=== PATIENT | male | born 1950 | race Caucasian/White ===

== ENCOUNTER 2017-11-20 07:30 | Inpatient (IN) | payer BC, MEDICARE ==
--- NOTE | 2017-11-22 10:23 | HP ---
HISTORY AND PHYSICAL: DATE OF SERVICE: 11/27/17 PROVIDER: Laxmi Early MD * (DICTATED BY YONY HOPSON) HISTORY OF PRESENT ILLNESS: Alfredo is a patient with severe left knee osteoarthritis, saying the pain is about 5/10. He has failed intra-articular injections, physical therapy, nonsteroidal antiinflammatories and would like to undergo a left total knee arthroplasty scheduled on 11/27/17. PAST MEDICAL HISTORY: 1. Obstructive sleep apnea, utilizes CPAP. 2. Morbid obesity. 3. Sleep disorder. 4. Hypoxemia. 5. Lymphedema. 6. Primary osteoarthritis. 7. Benign essential hypertension. 8. Type 2 diabetes mellitus. 9. Coronary arthrosclerosis. PAST SURGICAL HISTORY: In 2006 and 2016, stent placement; 1957 tonsils removed ; and then a small cyst removal 30 years ago. The patient had no known anesthesia problems during any of these. MEDICATIONS: 1. Lisinopril 5 mg 1 tablet daily. 2. Metformin extended release 500 mg 4 tablets once daily. 3. Aspirin 81 mg 1 by mouth daily. 4. Glimepiride 4 mg 1 tablet twice daily. 5. Victoza 18 mg/3 mL 1 injection daily. 6. Lantus SoloSTAR 100 units/mL. 7. Acarbose 50 mg one p.o. t.i.d. 8. Clopidogrel 75 mg. 9. Atorvastatin 10 mg. ALLERGIES: SIMVASTATIN causes leg cramps. FAMILY HISTORY: Paternal side - heart disease, gallbladder removal. SOCIAL HISTORY: The patient denies smoking. Patient drinks about 4 beers per year. Denies any illicit drug use. REVIEW OF SYSTEMS: General: The patient denies any fevers, chills or night sweats. HEENT: The patient denies any headache, lightheadedness or syncopal episodes. Cardiothoracic: The patient denies any chest pain, heart palpitations, or edema. Pulmonary: The patient denies any shortness of breath or chronic cough. GI: The patient denies any nausea, vomiting, diarrhea or constipation. : Denies any nocturia, urinary frequency, or urgency. MSK: The patient admits to left knee pain, denies any intermittent or chronic back pain. Neuro: The patient denies any paresthesias or numbness. Integument: The patient denies any abrasions, lesions, rashes, lumps, or open sores. PHYSICAL EXAMINATION GENERAL: The patient is alert and oriented x3, with appropriate mood and affect , appropriately dressed and hygiene, in no acute distress. HEENT: Normocephalic atraumatic. Hearing and vision are grossly intact. PULMONARY: Lungs are clear to auscultation bilaterally. No wheezes, rales or rhonchi appreciated. CARDIOTHORACIC: Regular rate and rhythm. Normal S1, S2. No appreciable S3 or S4. No murmurs, rubs or gallops. MUSCULOSKELETAL: Left lower extremity: Inspection of the left knee reveals no erythema, ecchymosis. Skin is warm dry and intact. He has trace to mild effusion of the knee. Range of motion is 0 degrees of extension to 120 degrees of flexion with some pain at terminal flexion. He has a medial and lateral tenderness to palpation along the joint line. Negative anterior and posterior drawer, no pain or laxity with varus or valgus stress testing. He is neurovascularly intact and has a 2+ dorsalis pedis pulse. IMPRESSION: Left knee osteoarthritis, severe, end stage. PLAN/RECOMMENDATIONS: To the OR for a left total knee arthroplasty on . The risks, benefits and complications were discussed with the patient and he understood. He would like to proceed. The patient will follow up on the 14th day status post surgery for followup with suture removal. YONY HOPSON [id number]/[facility] #: [id number] ANA
[2017-11-26] MEDS ORDERED: Buffered Lidocaine 0.9% SYRIN* 5 ML/SYR SYRINGE INTRADERM ONE (14:56)
[2017-11-27] MEDS ORDERED: celeCOXIB CAP* 200 MG PO ONE (06:00)
[2017-11-27] MEDS ORDERED: Gabapentin CAP(*) 300 MG PO ONE (06:00)
[2017-11-27] MEDS ORDERED: Acetaminophen IV 1GM/100ML * 1,000 MG/100 ML VIAL IVPB ONE (06:00)
[2017-11-27] MEDS ORDERED: Famotidine TAB* 20 MG PO ONE (06:00)
[2017-11-27] MEDS ORDERED: Dexamethasone IV* 4 MG/ML 1 ML (4 MG) IV SLOW PU ONE (06:00)
[2017-11-27] MEDS ORDERED: Dexamethasone IV* 4 MG/ML 1 ML (4 MG) ONE (07:03)
[2017-11-27] MEDS ORDERED: Famotidine IV* 10 MG/ML 2 ML (20 mg) ONE (07:03)
[2017-11-27] MEDS ORDERED: Gabapentin CAP(*) 300 MG ONE (07:04)
[2017-11-27] MEDS ORDERED: Buffered Lidocaine 0.9% SYRIN* 5 ML/SYR SYRINGE ONE (07:04)
[2017-11-27] MEDS ORDERED: celeCOXIB CAP* 100 MG ONE (07:04)
[2017-11-27] MEDS ORDERED: ceFAZolin 2 GM PREMIX (*) 2 GM/50 ML BAG IVPB ONE (07:04)
[2017-11-27] MEDS ORDERED: Bupivacaine 0.5% PF 10 ML VIAL INJ ONE ×2 (07:24→07:36)
[2017-11-27] MEDS ORDERED: Acetaminophen IV 1GM/100ML * 100 ML ONE (07:25)
[2017-11-27] MEDS ORDERED: Propofol* 10 MG/ML 20 ML BTL IV PUSH ONE (07:36)
[2017-11-27] MEDS ORDERED: Phenylephrine INJ* 10 MG/ML 1 ML VIAL (10 MG) ONE (07:36)
[2017-11-27] MEDS ORDERED: Midazolam* 1 MG/ML 10 ML VIAL (10 MG) ONE (07:38)
[2017-11-27] MEDS ORDERED: fentaNYL* 50 MCG/ML 2 ML VIAL (100 MCG VIAL) ONE (07:38)
[2017-11-27] MEDS ORDERED: ROPIVACAINE 5 MG/ML 30 ML BTL (0.5%) ONE ×2 (07:44→07:55)
[2017-11-27] MEDS ORDERED: Ondansetron ODT TAB* 4 MG ONE (07:53)
[2017-11-27] MEDS ORDERED: HYDROmorphone INJ* 1 MG/ML CARPUJECT SYRINGE IV PRN (09:20)
[2017-11-27] MEDS ORDERED: DiMENhydriNATE IV* 50 MG/ML VIAL IV PUSH PRN (09:20)
[2017-11-27] MEDS ORDERED: Naloxone* 0.4 MG/ML 1 ML VIAL IV PRN (09:20)
[2017-11-27] MEDS ORDERED: oxyCODONE TAB* 5 MG TAB PO PRN (09:20)
[2017-11-27] MEDS ORDERED: fentaNYL* 50 MCG/ML 2 ML VIAL (100 MCG VIAL) IV PRN (09:20)
[2017-11-27] MEDS ORDERED: Ondansetron ODT TAB* 4 MG SL PRN (10:45)
[2017-11-27] MEDS ORDERED: Cyclobenzaprine TAB* 10 MG PO PRN (11:02)
[2017-11-27] MEDS ORDERED: Ondansetron INJ* 2 MG/ML VIAL IV PRN (11:02)
[2017-11-27] MEDS ORDERED: Magnesium Hydroxide LIQ* 30 ML UDC PO PRN (11:02)
[2017-11-27] MEDS ORDERED: Acetaminophen TAB* 325 MG PO PRN (11:02)
[2017-11-27] MEDS ORDERED: diPHENhydraMINE IV* 50 MG/ML 1 ml VIAL (BENADRYL) IV PRN (11:02)
[2017-11-27] MEDS ORDERED: Bisacodyl SUPP* 10 MG SUPP PR PRN (11:02)
[2017-11-27] MEDS ORDERED: oxyCODONE/Acetamin 5/325 MG* TAB PO PRN (11:02)
[2017-11-27] MEDS ORDERED: Morphine VIAL* 4 MG/ML VIAL (1 ml vial) IV PRN (11:02)
[2017-11-27] MEDS ORDERED: Dextrose 50% Syringe 50 ML* 25 GM/50 ML SYRINGE IV PUSH PRN (11:40)
[2017-11-27] MEDS ORDERED: Insulin LISPRO* 1 UNITS UNIT SUBCUT ONE (11:50)
[2017-11-27] MEDS: Insulin LISPRO* 1 UNITS UNIT SUBCUT SCH ×3 (11:51→21:19)
--- NOTE | 2017-11-27 12:28 | RAD ---
HISTORY: Status post left knee arthroplasty COMPARISONS: November 16, 2017 VIEWS: 2, Frontal and lateral views of the left knee FINDINGS: BONE DENSITY: Normal. BONES: The patient is status post left knee arthroplasty. There is no hardware failure or osteolysis. JOINTS: The patient is status post left knee arthroplasty. ALIGNMENT: There is no dislocation. SOFT TISSUES: Unremarkable. OTHER FINDINGS: There is postsurgical change to the soft tissue. IMPRESSION: STATUS POST LEFT KNEE ARTHROPLASTY
[2017-11-27] MEDS: oxyCODONE/Acetamin 5/325 MG* TAB PO PRN ×3 (14:18→23:27)
[2017-11-27] MEDS: Atorvastatin* 10 MG TAB PO SCH (16:46)
[2017-11-27] MEDS: ceFAZolin 1 GM in Dextrose (*) 1 GM/50 ML BAG IVPB SCH (16:46)
[2017-11-27] MEDS ORDERED: Warfarin TAB(*) 6 MG PO ONE (17:00)
[2017-11-27] MEDS: oxyCODONE TAB* 5 MG TAB PO PRN (17:28)
[2017-11-27] MEDS ORDERED: Insulin GLARGINE(*) 1 UNITS UNIT SUBCUT SCH (21:00)
[2017-11-27] MEDS: Magnesium Hydroxide LIQ* 30 ML UDC PO SCH (21:03)
[2017-11-27] MEDS: Docusate CAP* 100 MG PO SCH (21:17)
--- NOTE | 2017-11-27 23:10 | CONS ---
CONSULTATION REPORT: DATE OF CONSULT: 11/27/17 PROVIDER: Ileana Tanner NP ATTENDING PHYSICIAN: Dr. Diallo (report dictated by Ileana Tanner NP). REFERRING PHYSICIAN: Dr. Early. REASON FOR CONSULT: Co-medical management. HISTORY OF PRESENT ILLNESS: Mr. Alfredo Campos is a very pleasant 67-year-old male with severe left knee osteoarthritis, who underwent an elective left total knee replacement today with Dr. Early. He also has a past medical history of obstructive sleep apnea, on CPAP; morbid obesity; hypertension; insulin- dependent type 2 diabetes; and history of coronary artery disease, status post stent placement. The patient was seen and evaluated at the bedside on short stay surgical unit where he was found to be alert and oriented x3, sitting up in a chair, visiting with his . He reports his pain is well controlled. He denies any nausea. No chest pain, shortness of breath. He reports he has a good appetite. PAST MEDICAL HISTORY: 1. Obstructive sleep apnea, on CPAP. 2. Lymphedema. 3. Osteoarthritis. 4. Hypertension. 5. Morbid obesity. 6. Insulin-dependent type 2 diabetes. 7. Coronary artery disease, status post stent placement in 2006 and 2016. PAST SURGICAL HISTORY: 1. Coronary artery stent placement in 2006 and 2017. 2. Tonsillectomy. MEDICATIONS: Current medications reviewed and appreciated. Home medications: 1. Metformin 2000 mg p.o. q.p.m. 2. Lisinopril 5 mg p.o. q.a.m. 3. Victoza 1.8 mL injection q.a.m. 4. Lantus 28 units subcu q.p.m. 5. Glimepiride 4 mg p.o. b.i.d. 6. Plavix 75 mg p.o. q.p.m. 7. Chlorthalidone 25 mg p.o. q.a.m. 8. Atorvastatin 10 mg p.o. q.p.m. 9. Aspirin 81 mg p.o. q.a.m. 10. Acarbose 25 mg p.o. b.i.d. ALLERGIES: SIMVASTATIN causes leg cramps. FAMILY HISTORY: Reviewed and noncontributory. SOCIAL HISTORY: The patient denies history of smoking. Rare alcohol use. Denies any recreational drug use. He lives at home with his , who is his healthcare proxy. REVIEW OF SYSTEMS: A 14-point review of systems was performed. All the pertinent positives and negatives are mentioned in the history of present illness. Otherwise negative. PHYSICAL EXAM: General Appearance: Obese male, sitting up in a chair, alert and oriented x3, in no acute distress, very pleasant, cooperative, good historian. Vital Signs: Temperature 98.3, heart rate 62, respirations 16, O2 sat 94% on room air, blood pressure 126/62. HEENT: Head is normocephalic, atraumatic. Pupils are equal and reactive to light. Oropharynx is clear. Moist mucous membranes. Neck is supple. Cardiac: S1, S2. Regular rate and rhythm. No murmur, rub, or gallop appreciated. No lower extremity edema noted. Lungs are clear to auscultation bilaterally, good aeration throughout. Musculoskeletal: Left knee has an Andrea bandage with a Cryo unit intact. 2+ DP pulses bilaterally. Good sensation to lower extremities. Neuro: Alert and oriented x3. Cranial nerves II through XII are grossly intact. No focal deficits noted. ASSESSMENT AND PLAN: Mr. Campos is a 67-year-old male with a past medical history of coronary artery disease, status post stent placement; obstructive sleep apnea; insulin-dependent type 2 diabetes; hypertension; and osteoarthritis , who underwent an elective left total knee replacement today with Dr. Early. Hospital Medicine was asked for co-medical management. 1. Status post left total knee replacement. Postop day 0. Disposition per orthopedic team. PT/OT, pain management, bowel regimen. Per the patient, he believes that he will need a couple days of rehab prior to going home. 2. Insulin-dependent type 2 diabetes. The patient has not had any food since last evening. Last blood sugar was 249. Plan for fingerstick blood glucose a.c. and h.s. with lispro sliding scale holding all his home medications. At home, he takes Lantus 28 units, plan to reduce this to half due to the patient is having much less to eat today. 3. Hypertension. The patient's blood pressures postoperatively are systolically 110 to 120s. At this time, we will hold lisinopril and chlorthalidone and should be restarted when appropriate. Continue to monitor blood pressures closely. 4. Coronary artery disease. Asymptomatic. Aspirin and Plavix are currently on hold, which should be restarted when cleared by Surgery. The patient is to go home on Coumadin. 5. Sleep apnea. May continue home CPAP. 6. DVT prophylaxis. Lovenox 40 mg subcu q.24 hours and Coumadin. Discontinue Lovenox once INR is therapeutic. Check INR daily. 7. Hospital disposition. Inpatient. Disposition per ortho team. 8. Code status: Full code. TIME SPENT: Approximately 60 minutes were spent on this consultation. Thank you very much for asking Hospital Medicine to take part in Mr. Campos's care. We will continue to follow along. ILEANA TANNER, SWAPNIL [id number]/[facility] #: [id number] ANA
[2017-11-28] MEDS: ceFAZolin 1 GM in Dextrose (*) 1 GM/50 ML BAG IVPB SCH ×2 (00:25→08:05)
[2017-11-28] MEDS: oxyCODONE/Acetamin 5/325 MG* TAB PO PRN ×4 (03:46→21:23)
[2017-11-28 06:08] LABS: ABS Basophils 0 10^3/ul (0-0.2); ABS Eosinophils 0 10^3/ul (0-0.6); ABS Lymphocytes 1.7 10^3/ul (1.0-4.8); ABS Neutrophils 9.9 10^3/ul (1.5-7.7); ABS Nucleated RBC 0 10^3/ul; Eosinophil % 0.3 % (0-6); Hematocrit 29 % (42-52); Hemoglobin 10.3 g/dl (14.0-18.0); Lymphocyte % 13.8 % (25-47); Mean Corpuscular HGB Conc 35 g/dl (31-36); Mean Corpuscular Hemoglobin 29 pg (27-31); Mean Corpuscular Volume 84 fL (80-94); Mean Platelet Volume 8.4 um3 (7.4-10.4); Nucleated Red Blood Cells % 0.1; Platelet Count 170 10^3/ul (150-450); Red Cell Distribution Width 13 % (10.5-15); White Blood Count 12.6 10^3/ul (3.5-10.8)
[2017-11-28] MEDS: oxyCODONE TAB* 5 MG TAB PO PRN ×4 (06:14→21:37)
[2017-11-28 06:16] LABS: INR 1.16 (0.77-1.02)
[2017-11-28 06:28] LABS: EGFR Non-African American 67.7 (>60)
[2017-11-28] MEDS ORDERED: Insulin GLARGINE(*) 1 UNITS UNIT SUBCUT ONE (07:26)
[2017-11-28] MEDS: Insulin LISPRO* 1 UNITS UNIT SUBCUT SCH ×4 (08:03→22:52)
[2017-11-28] MEDS: Vitamin THERAPEUTIC TAB PO SCH (08:06)
[2017-11-28] MEDS: Docusate CAP* 100 MG PO SCH ×2 (08:06→21:24)
[2017-11-28] MEDS: Magnesium Hydroxide LIQ* 30 ML UDC PO SCH ×2 (08:07→21:24)
--- NOTE | 2017-11-28 08:45 | PN ---
Subjective Date of Service: 11/28/17 Interval History: Pt feels well. Walked with PT yesterday and plans to be discharged today Objective Active Medications: Acetaminophen (Tylenol Tab*) 650 mg PO Q4H PRN PRN Reason: PAIN OR TEMPERATURE Atorvastatin Calcium (Lipitor*) 10 mg PO QPM [facility] Last Admin: 11/27/17 16:46 Dose: 10 mg Bisacodyl (Dulcolax Supp*) 10 mg [facility] DAILY PRN PRN Reason: constipation Cyclobenzaprine HCl (Flexeril Tab*) 10 mg PO TID PRN PRN Reason: SPASMS Dextrose (D50w Syringe 50 Ml*) 12.5 gm IV PUSH .FOR FS < 60 - SS PRN PRN Reason: FS < 60 Diphenhydramine HCl (Benadryl Iv*) 25 mg IV Q6H PRN PRN Reason: itching Docusate Sodium (Colace Cap*) 100 mg PO BID [facility] Last Admin: 11/28/17 08:06 Dose: 100 mg Enoxaparin Sodium (Lovenox(*)) 40 mg SUBCUT Q24H [facility] Lactated Ringer's (Lactated Ringers 1000 Ml Bag*) 1,000 mls @ 125 mls/hr IV PER RATE [facility] Last Admin: 11/27/17 23:27 Dose: 125 mls/hr Cefazolin Sodium/Dextrose (Kefzol 1 Gm In Dextrose Duplex (*)) 1 gm in 50 mls @ 200 mls/hr IVPB Q8H [facility] Stop: 11/28/17 08:44 Last Admin: 11/28/17 08:05 Dose: 200 mls/hr Lactated Ringer's (Lactated Ringers 1000 Ml Bag*) 1,000 mls @ 100 mls/hr IV PER RATE [facility] Insulin Glargine (Lantus(*)) 20 units SUBCUT BEDTIME [facility] Insulin Human Lispro (Humalog*) 0 units SUBCUT ACHS [facility] PRN Reason: Protocol Last Admin: 11/28/17 08:03 Dose: 9 units Magnesium Hydroxide (Milk Of Magnesia Liq*) 30 ml PO BID [facility] Last Admin: 11/28/17 08:07 Dose: 30 ml Magnesium Hydroxide (Milk Of Magnesia Liq*) 30 ml PO Q6H PRN PRN Reason: constipation Morphine Sulfate (Morphine Vial*) 2 mg IV Q2H PRN PRN Reason: PAIN - UNCONTROLLED Multivitamins (Theragran Tab*) 1 tab PO DAILY [facility] Last Admin: 11/28/17 08:06 Dose: 1 tab Naloxone HCl (Narcan*) 0.08 mg IV Q2M PRN PRN Reason: severe induced resp depression Stop: 11/28/17 09:19 Ondansetron HCl (Zofran Odt Tab*) 4 mg SL Q6H PRN PRN Reason: NAUSEA/VOMITING Ondansetron HCl (Zofran Inj*) 4 mg IV Q6H PRN PRN Reason: nausea Oxycodone HCl (Roxycodone Tab*) 5 mg PO ONCE PRN PRN Reason: PAIN - MODERATE Oxycodone HCl (Roxycodone Tab*) 10 mg PO Q4H PRN PRN Reason: PAIN - SEVERE Last Admin: 11/28/17 06:14 Dose: 10 mg Oxycodone/Acetaminophen (Percocet 5/325 Tab*) 2 tab PO Q4H PRN PRN Reason: PAIN Last Admin: 11/28/17 08:06 Dose: 2 tab Oxycodone/Acetaminophen (Percocet 5/325 Tab*) 1 tab PO Q4H PRN PRN Reason: PAIN Pharmacy Profile Note (Coumadin Daily Reminder*) 1 note FOLLOW UP 1700 [facility] Last Admin: 11/27/17 16:50 Dose: 1 note Vital Signs - 8 hr 11/28/17 11/28/17 11/28/17 01:43 03:39 03:46 Temperature 98.1 F Pulse Rate 81 Respiratory 16 16 18 Rate Blood Pressure 157/69 (mmHg) O2 Sat by Pulse 96 Oximetry 11/28/17 11/28/17 11/28/17 06:14 07:37 08:06 Temperature 97.6 F Pulse Rate 66 Respiratory 18 16 18 Rate Blood Pressure 123/58 (mmHg) O2 Sat by Pulse 95 Oximetry Oxygen Devices in Use Now: None, CPAP Appearance: 67 yo M in nAD, aAOx3 Eyes: No Scleral Icterus, PERRLA Ears/Nose/Mouth/Throat: NL Teeth, Lips, Gums, Mucous Membranes Moist Neck: NL Appearance and Movements; NL JVP, Trachea Midline Respiratory: Symmetrical Chest Expansion and Respiratory Effort, Clear to Auscultation Cardiovascular: NL Sounds; No Murmurs; No JVD, RRR Abdominal: NL Sounds; No Tenderness; No Distention Lymphatic: No Cervical Adenopathy Extremities: No Clubbing, Cyanosis, - - mild left leg edema, left knee in cryo unit Skin: No Nodules or Sclerosis, - - left knee dressing not removed Neurological: Alert and Oriented x 3, NL Muscle Strength and Tone Result Diagrams: 11/28/17 05:28 11/28/17 05:28 Assess/Plan/Problems-Billing Assessment: 67 yo M with h/o CAD(stents), DM2(on insulin), HTN, NIMA on CPAP s/p left knee replacement - Patient Problems (1) Status post total left knee replacement Comment: D/w ortho service. During the time that pt is on Coumadin, chapin cont ASA , but hold Plavix and restart it after Coumadin is discontinued (2) CAD (coronary artery disease) Comment: see above asymptomatic (3) HTN (hypertension) Comment: controlled. Restart Lisinoprl and chlorthalidione in aM (4) DM type 2 (diabetes mellitus, type 2) Comment: Lantus increased to 20 U Holdin oral agents till d/c home (5) NIMA (obstructive sleep apnea) Comment: cont CPAP Status and Disposition: medicine consult. Will follow if pt stays till tomorrow Thank you
[2017-11-28] MEDS: Enoxaparin(*) 40 MG/0.4 ML SYR SUBCUT SCH (11:41)
--- NOTE | 2017-11-28 11:45 | OP ---
DATE OF OPERATION: 11/27/17 - ROOM #343 DATE OF : 52 ATTENDING SURGEON: Laxmi Early MD TRAINING GENERALIST: YONY Estes. Mr. Hernadez did help throughout the procedure with separation of the leg, wound retraction, and manipulation of the knee. ANESTHESIOLOGIST: Dr. Avina. ANESTHESIA: Spinal. PRE-OP DIAGNOSIS: Severe end-stage degenerative osteoarthritis of the left knee joint. POST-OP DIAGNOSIS: Severe end-stage degenerative osteoarthritis of the left knee joint. OPERATIVE PROCEDURE: Left total knee arthroplasty. TOURNIQUET TIME: 46 minutes. COMPLICATIONS: None. ESTIMATED BLOOD LOSS: 300 cc. SPECIMENS: Bone and cartilage from the left knee joint sent to Pathology. HARDWARE USED: This is cemented [employer] total knee arthroplasty hardware, 2 packages of Simplex bone cement, for the femur a size 6 left Oxinium posterior stabilized Legion femoral component. For the tibia a size 6 left tibial base plate Lyn 2. For the insert a 13-mm size 5/6 posterior stabilized articular insert, for the patellar a 75-mm 3-peg all poly patella. BRIEF HISTORY/INDICATIONS: Mr. Campos is a 67-year-old gentleman with significant left knee pain. He failed conservative treatment with antiinflammatories, pain medications, intraarticular injections, and physical therapy. Radiographs showed [id number] arthritis. Due to continued continued pain and decreased quality of life, he elected to undergo a left total knee arthroplasty. Informed consent was obtained from the patient. He understood the risks of surgery included, but were not limited to bleeding, infection, damage to nearby structures, continued pain, further surgery, intraoperative fracture, nerve palsy, hardware failure or loosening, knee stiffness, loss of motion, stroke, heart attack, blood clot, and . He wished to proceed. INTRAOPERATIVE FINDINGS: Intraoperatively, the patient was noted to have full- thickness loss of cartilage along the medial and patellofemoral compartments. He had significant Varus deformity with 10-degree flexion contracture . DESCRIPTION OF PROCEDURE: Mr. Campos was identified in the preanesthesia unit. His left lower extremity was marked as the correct operative site. Informed consent was signed and placed in the chart. The patient was taken to the operating room and placed under spinal anesthesia. A Berry catheter was placed. Tourniquet was placed on the left thigh. Left lower extremity was prepped and draped in the usual sterile fashion. Preop time-out was made to correctly identify the patient side and site. Appropriate perioperative antibiotics were given within 1 hour of incision. Tourniquet was inflated and total tourniquet time for this procedure was 46 minutes. A 12-cm midline incision was made with a 10 blade and carried down to the extensor mechanism. A new 10-blade was used to make a standard medial parapatellar arthrotomy. The patellar was subluxed laterally. Electrocautery was used to subperiosteally elevate the soft tissue off the superomedial tibia to the mid sagittal plane. The knee was flexed up. Anterior horn of the lateral meniscus and ACL were sharply released. A drill was used to enter the distal femur. Intramedullary distal femoral cutting guide was pinned on the distal femur. Oscillating saw was used to make the distal femoral cut. Next the external rotation guide was pinned on the distal femur and the distal femur was sized to a size 6. Size-6 multi-cutting jig was pinned on the distal femur. Oscillating saw was used to make the appropriate four chamfer cuts. The PCL was completely released. Tibia was subluxed anteriorly. Extramedullary tibial cutting guide was pinned on the proximal tibia. Oscillating saw was used to make a proximal tibial cut perpendicular to the mechanical axis of the tibia. The bone was carefully removed. The knee was brought out into full extension. A spacer block had good fit with full extension. Medial and lateral ligaments were well balanced. Any remaining osteophytes were removed from along the medial tibial plateau. The knee was flexed up. A lamina forest manager was placed both medially and laterally. Any remaining meniscus was carefully removed using electrocautery. Curved osteotome was used to remove any posterior osteophytes. Tibial tray and drop kalyani confirmed a satisfactory tibial cut. A size 6 left femoral trial was impacted on to the distal femur and had excellent fit. The box for the posterior stabilized implant was prepared using a reamer and box-cut osteotome. A size 6 tibial tray trial with a 11-mm insert trial was placed. There was some laxity with flexion and extension, therefore a 13-mm insert trial was placed. The knee had full extension and 130 degrees of flexion with good patellofemoral tracking. The patella was everted. 9 mm of patellar bone and cartilage was carefully removed using an oscillating saw. The patella was sized to a size 35. Three peg holes were drilled through the size 35 guide. The 35 trial patella was placed and the knee was taken through range of motion. There was satisfactory patellofemoral tracking. All trials were carefully removed. Tibia was subluxed anteriorly and sized for a size 6. Proximal tibia was prepared using a size 6 keel punch. All bony cut surfaces were copiously irrigated with sterile saline and dried. Final implants were cemented into place starting with the tibia followed by the femur and last the patella. A 13-mm insert trial was placed and the knee was brought out into full extension. The tourniquet was turned down at 46 minutes. The knee was copiously irrigated with sterile saline. Electrocautery was used to obtain meticulous hemostasis. Once the cement had fully cured, the insert trial was removed. Any excess cement was carefully removed from around the implants and capsule. Final insert chosen was an 13-mm posterior stabilized articular insert size 5/6. This was locked into position on the tibial tray. Stability of the insert was checked and rechecked and noted to be stable. The knee was copiously irrigated with sterile saline. The extensor mechanism was closed over a medium Hemovac drain using interrupted #1 Vicryl. The rest of the incision was closed in a layered fashion using 0 and 2-0 Vicryl. Skin was closed using running 3-0 nylon suture. Sterile Xeroform, 4x4s, and Webril were used to cover the incision. Andrea wrap and cold pack were placed over this. The patient's anesthesia was reversed without difficulty. He was taken to the PACU in stable condition. Intended weight bearing will be weight bearing as tolerated. Intended DVT prophylaxis will be Coumadin with a Lovenox bridge. [id number]/[facility] #: [id number] ANA
--- NOTE | 2017-11-28 12:11 | PN ---
Progress Note - Progress Note Date of Service: 11/28/17 SOAP: Subjective: []Patient seen OOB in chair. His left knee pain is well controlled. Denies chest pain, shortness of breath, dizziness. Objective: [] Vital Signs Temp 97.8 F 11/28/17 11:27 Pulse 69 11/28/17 11:27 Resp 18 11/28/17 11:40 BP 140/58 11/28/17 11:27 Pulse Ox 97 11/28/17 11:27 Intake & Output 11/27/17 11/28/17 11/28/17 18:59 06:59 18:59 Intake Total 2685 2482 1432 Output Total 900 4650 Balance 1785 -2168 1432 Weight 256 lb 3.2 oz Intake: IV Fluids 0829 303 3042 ABX - CEFAZOLIN 109 LR 1900 987 963 IVPB 55 ABX - CEFAZOLIN 55 Oral 785 1440 360 Output: Urine 1350 Berry 800 3300 Residual 100 Berry 16 Fr 100 Laboratory Last Values WBC 12.6 10^3/ul (3.5-10.8) H 11/28/17 05:28 RBC 3.50 10^6/ul (4.0-5.4) L 11/28/17 05:28 Hgb 10.3 g/dl (14.0-18.0) L 11/28/17 05:28 Hct 29 % (42-52) L 11/28/17 05:28 MCV 84 fL (80-94) 11/28/17 05:28 MCH 29 pg (27-31) 11/28/17 05:28 MCHC 35 g/dl (31-36) 11/28/17 05:28 RDW 13 % (10.5-15) 11/28/17 05:28 Plt Count 170 10^3/ul (150-450) 11/28/17 05:28 MPV 8.4 um3 (7.4-10.4) 11/28/17 05:28 Neut % (Auto) 78.2 % (38-83) 11/28/17 05:28 Lymph % (Auto) 13.8 % (25-47) L 11/28/17 05:28 [place] % (Auto) 7.6 % (0-7) H 11/28/17 05:28 Eos % (Auto) 0.3 % (0-6) 11/28/17 05:28 Baso % (Auto) 0.1 % (0-2) 11/28/17 05:28 Absolute Neuts (auto) 9.9 10^3/ul (1.5-7.7) H 11/28/17 05:28 Absolute Lymphs (auto) 1.7 10^3/ul (1.0-4.8) 11/28/17 05:28 Absolute Monos (auto) 1.0 10^3/ul (0-0.8) H 11/28/17 05:28 Absolute Eos (auto) 0 10^3/ul (0-0.6) 11/28/17 05:28 Absolute Basos (auto) 0 10^3/ul (0-0.2) 11/28/17 05:28 Absolute Nucleated RBC 0 10^3/ul 11/28/17 05:28 Nucleated RBC % 0.1 11/28/17 05:28 INR (Anticoag Therapy) 1.16 (0.77-1.02) H 11/28/17 05:28 Sodium 133 mmol/L (139-145) L 11/28/17 05:28 Potassium 4.1 mmol/L (3.5-5.0) 11/28/17 05:28 Chloride 97 mmol/L (101-111) L 11/28/17 05:28 Carbon Dioxide 31 mmol/L (22-32) 11/28/17 05:28 Anion Gap 5 mmol/L (2-11) 11/28/17 05:28 BUN 22 mg/dL (6-24) 11/28/17 05:28 Creatinine 1.09 mg/dL (0.67-1.17) 11/28/17 05:28 Est GFR ( Amer) 87.0 (>60) 11/28/17 05:28 Est GFR (Non-Af Amer) 67.7 (>60) 11/28/17 05:28 BUN/Creatinine Ratio 20.2 (8-20) H 11/28/17 05:28 Glucose 245 mg/dL (70-100) H 11/28/17 05:28 POC Glucose (mg/dL) 283 mg/dL (70-100) H 11/28/17 07:10 Calcium 8.7 mg/dL (8.6-10.3) 11/28/17 05:28 General: Well appearing, NAD, OOB in chair LLE: Dressing CDI without surrounding erythema. Thigh soft. DF/PF intact. Sensation intact and capillary refill less than two seconds distally. DP 2+. BL LE: Calves supple and nontender without erythema, edema or palpable cords. Assessment: []POD 1 sp left total knee replacement Plan: []WBAT PT/OT Lovenox, coumadin 6 mg During the time that patient is on Coumadin, will continue ASA, but hold Plavix and restart it after Coumadin is discontinued If bed offer / insurance authorization may DC today. If not, plan for tomorrow
[2017-11-28] MEDS ORDERED: metFORMIN* 1,000 MG TAB PO SCH (18:00)
[2017-11-28] MEDS: Atorvastatin* 10 MG TAB PO SCH (18:24)
[2017-11-28] MEDS ORDERED: Insulin GLARGINE(*) 1 UNITS UNIT SUBCUT SCH (21:00)
[2017-11-29] MEDS: oxyCODONE/Acetamin 5/325 MG* TAB PO PRN ×3 (01:27→09:30)
[2017-11-29] MEDS: oxyCODONE TAB* 5 MG TAB PO PRN ×3 (03:08→11:29)
[2017-11-29 05:47] LABS: Hematocrit 29 % (42-52); Hemoglobin 10.1 g/dl (14.0-18.0); Mean Platelet Volume 8.1 um3 (7.4-10.4); Platelet Count 155 10^3/ul (150-450); White Blood Count 9.9 10^3/ul (3.5-10.8)
[2017-11-29 05:52] LABS: INR 1.1 (0.77-1.02)
[2017-11-29] MEDS: Vitamin THERAPEUTIC TAB PO SCH (07:31)
[2017-11-29] MEDS: Docusate CAP* 100 MG PO SCH (07:31)
[2017-11-29] MEDS: Magnesium Hydroxide LIQ* 30 ML UDC PO SCH (07:32)
[2017-11-29] MEDS: Insulin LISPRO* 1 UNITS UNIT SUBCUT SCH ×2 (08:25→12:09)
[2017-11-29] MEDS ORDERED: Lisinopril TAB* 5 MG PO SCH (09:00)
[2017-11-29] MEDS ORDERED: Chlorthalidone TAB* 50 MG PO SCH (09:00)
[2017-11-29 11:55] VITALS: BP 155/65
[2017-11-29] MEDS: Enoxaparin(*) 40 MG/0.4 ML SYR SUBCUT SCH (12:09)
--- NOTE | 2017-11-29 13:20 | PN ---
Progress Note - Progress Note Date of Service: 11/29/17 SOAP: Subjective: []Patient seen at bedside. He is feeling well with well controlled pain. Denies chest pain, shortness of breath, dizziness or nausea. Objective: [] Vital Signs Temp 98.5 F 11/29/17 11:52 Pulse 83 11/29/17 11:52 Resp 16 11/29/17 11:52 BP 155/65 11/29/17 11:52 Pulse Ox 91 11/29/17 11:52 Intake & Output 11/28/17 11/29/17 11/29/17 18:59 06:59 18:59 Intake Total 2032 860 375 Output Total 700 1125 850 Balance 7156 -159 -341 Intake: IV Fluids 1072 ABX - CEFAZOLIN 109 LR 963 Oral 960 860 375 Output: Urine 700 1125 850 Other: Estimated Void Large Laboratory Last Values WBC 9.9 10^3/ul (3.5-10.8) 11/29/17 05:30 RBC 3.50 10^6/ul (4.0-5.4) L 11/28/17 05:28 Hgb 10.1 g/dl (14.0-18.0) L 11/29/17 05:30 Hct 29 % (42-52) L 11/29/17 05:30 MCV 84 fL (80-94) 11/28/17 05:28 MCH 29 pg (27-31) 11/28/17 05:28 MCHC 35 g/dl (31-36) 11/28/17 05:28 RDW 13 % (10.5-15) 11/28/17 05:28 Plt Count 155 10^3/ul (150-450) 11/29/17 05:30 MPV 8.1 um3 (7.4-10.4) 11/29/17 05:30 Neut % (Auto) 78.2 % (38-83) 11/28/17 05:28 Lymph % (Auto) 13.8 % (25-47) L 11/28/17 05:28 [place] % (Auto) 7.6 % (0-7) H 11/28/17 05:28 Eos % (Auto) 0.3 % (0-6) 11/28/17 05:28 Baso % (Auto) 0.1 % (0-2) 11/28/17 05:28 Absolute Neuts (auto) 9.9 10^3/ul (1.5-7.7) H 11/28/17 05:28 Absolute Lymphs (auto) 1.7 10^3/ul (1.0-4.8) 11/28/17 05:28 Absolute Monos (auto) 1.0 10^3/ul (0-0.8) H 11/28/17 05:28 Absolute Eos (auto) 0 10^3/ul (0-0.6) 11/28/17 05:28 Absolute Basos (auto) 0 10^3/ul (0-0.2) 11/28/17 05:28 Absolute Nucleated RBC 0 10^3/ul 11/28/17 05:28 Nucleated RBC % 0.1 11/28/17 05:28 INR (Anticoag Therapy) 1.10 (0.77-1.02) H 11/29/17 05:30 Sodium 133 mmol/L (139-145) L 11/28/17 05:28 Potassium 4.1 mmol/L (3.5-5.0) 11/28/17 05:28 Chloride 97 mmol/L (101-111) L 11/28/17 05:28 Carbon Dioxide 31 mmol/L (22-32) 11/28/17 05:28 Anion Gap 5 mmol/L (2-11) 11/28/17 05:28 BUN 22 mg/dL (6-24) 11/28/17 05:28 Creatinine 1.09 mg/dL (0.67-1.17) 11/28/17 05:28 Est GFR ( Amer) 87.0 (>60) 11/28/17 05:28 Est GFR (Non-Af Amer) 67.7 (>60) 11/28/17 05:28 BUN/Creatinine Ratio 20.2 (8-20) H 11/28/17 05:28 Glucose 245 mg/dL (70-100) H 11/28/17 05:28 POC Glucose (mg/dL) 235 mg/dL (70-100) H 11/29/17 07:23 Hemoglobin A1c 7.1 % (4.0-5.6) H 11/29/17 05:30 Calcium 8.7 mg/dL (8.6-10.3) 11/28/17 05:28 General: Well appearing, NAD LLE: Dressing changed, incision CDI without surrounding erythema. Thigh soft. DF /PF intact. Sensation intact and capillary refill less than two seconds distally. DP 2+. BL LE: Calves supple and nontender without erythema, edema or palpable cords. Assessment: []POD 2 sp left total knee replacement Plan: []WBAT PT/OT Coumadin 6 mg today During the time that patient is on Coumadin, will continue ASA, but hold Plavix and restart it after Coumadin is discontinued DC today to [facility]
--- NOTE | 2017-11-30 09:24 | DS ---
DISCHARGE SUMMARY: DATE OF ADMISSION: 11/27/17. DATE OF DISCHARGE: 11/29/17 SURGEON: Dr. Laxmi Early. * (DICTATED BY YONY MOTT) DRIED FRUIT WASHER: YONY Estes. PRE-OP DIAGNOSIS: Severe end-stage degenerative osteoarthritis of the left knee joint. OPERATIVE PROCEDURE: Left total knee arthroplasty. HISTORY: Mr. Campos is a 67-year-old gentleman with significant left knee pain. He failed conservative management with antiinflammatories, pain medications, intraarticular injections, and physical therapy. He elected to undergo a left total knee arthroplasty. HOSPITAL COURSE: The patient was admitted to [facility] on . He underwent a left total knee arthroplasty without complications. He recovered briefly in the PACU and then was transferred to short stay surgical unit, in stable condition. He was also followed by hospitalist service during the stay. On postop day#1, he was well appearing, in no acute distress. Dressing was clean, dry, and intact without surrounding erythema. Calves soft. Dorsiflexion and plantarflexion intact. Sensation intact and capillary refill less than 2 seconds distally. Dorsalis pedis pulse was 2+. Hemoglobin 10.3, hematocrit 29. Postop#2, the patient was well-appearing, no acute distress. Dressing was changed. Incision was clean, dry and intact with well approximated wound edges. No surrounding erythema. Dorsiflexion, plantarflexion are intact. Calves soft and supple without any palpable cords. Hemoglobin 10.1, hematocrit 29, INR 1.10. Vital signs: 142/71. On postop day # 1, he was seen by our hospitalist service. No medications were changed, though it was recommended that during his stay he be on Coumadin and aspirin, and hold his Plavix until he is done with Coumadin and then resume. DISCHARGE MEDICATIONS: 1. Metformin 2000 mg p.o. q.p.m. 2. Victoza 1.8 mg injectable q.a.m. 3. Hygroton tab 25 mg p.o. q.a.m. 4. Aspirin 81 mg p.o. q.a.m. 5. Insulin glargine 28 units injected at bedtime. 6. Glimepiride 4 mg p.o. b.i.d. 7. Acarbose 25 mg p.o. b.i.d. 8. Lisinopril 5 mg p.o. q.a.m. 9. Atorvastatin 10 mg p.o. q.p.m. Please hold your Plavix until you are done with your Coumadin and then resume. New medications at home: 1. Acetaminophen 650 mg p.o. q.4 hours p.r.n., max daily dose 4000 mg from all sources. 2. Docusate 100 mg p.o. b.i.d. 3. Percocet 5/325 one to two tabs every 4 to 6 hours p.r.n., max daily dose of 10. 4. Warfarin 2 mg tab, take one to three tabs daily. Dose depends on INR draws. DISCHARGE PLAN: The patient will be discharged to [facility]. He will be weightbearing as tolerated. Okay to shower on postop day#3. Do not submerge the wound. Nursing to do wound checks and INR draws Mondays and . Coumadin dosin11/29/17, 6 mg; 11/30/17, 4 mg; 12/01/17 and 12/02/17, 2 mg daily and recheck on 12/03/17. Please hold your Plavix while you are on Coumadin. You may take your aspirin. Restart your Plavix when you are done with Coumadin. Pain control with Percocet 5/325 one to two tabs by mouth every 4 to 6 hours as needed for pain, max of 10 tabs per day. Follow up with Dr. Early in 10 to 14 days. YONY MOTT [id number]/[facility] #: [id number] [facility] HOSPITALNiraj
== END 2017-11-29 13:20 | DRG 470 ==
LOC: AA 11-27 06:27 → SSU 11-27 11:02
PROVIDERS: ADMIT Orthopaedic Surgery Adult Reconstructive Orthopaedic Surgery; ATTEND Orthopaedic Surgery Adult Reconstructive Orthopaedic Surgery
PROC: 0SRD069 Replacement of Left Knee Joint with Oxidized Zirconium on Polyethylene Synthetic Substitute, Cemented, Open Approach (ICD-10-PCS; principal; 2017-11-27 08:00)
DX: M17.12 Unilateral primary osteoarthritis, left knee (principal); Z68.41 Body mass index [BMI] 40.0-44.9, adult; G47.33 Obstructive sleep apnea (adult) (pediatric); E66.01 Morbid (severe) obesity due to excess calories; I10 Essential (primary) hypertension; E11.9 Type 2 diabetes mellitus without complications; I25.10 Atherosclerotic heart disease of native coronary artery without angina pectoris; M25.462 Effusion, left knee; M21.162 Varus deformity, not elsewhere classified, left knee; M25.762 Osteophyte, left knee; E78.5 Hyperlipidemia, unspecified; Z79.82 Long term (current) use of aspirin; Z79.4 Long term (current) use of insulin; Z79.01 Long term (current) use of anticoagulants; Z95.5 Presence of coronary angioplasty implant and graft; Z88.8 Allergy status to other drugs, medicaments and biological substances; Z82.49 Family history of ischemic heart disease and other diseases of the circulatory system; Z72.89 Other problems related to lifestyle; Z87.442 Personal history of urinary calculi
CPT/HCPCS: 36415; 80048; 83036; 85014; 85018; 85025; 85048; 85049; 85610; 88305; 88311; A9270-GY; C1776; G8978-GP-CJ; G8979-GP-CI; G8987-GO-CK; G8988-GO-CI; G8989-GO-CI; J0690; J1100; J1200; J1650; J2250; J2270; J2704; J2795; J3010

== ENCOUNTER 2018-11-29 08:50 | Day surgery (SDC) | payer MEDICARE ==
--- NOTE | 2018-11-20 18:20 | HP ---
Amended report to enter cosigning physician. HISTORY AND PHYSICAL: DATE OF ADMISSION/SURGERY: 11/29/18 DATE OF OFFICE VISIT: 11/18/18 SURGEON: Dr. Barber* (dictated by YONY Cox). PROCEDURE: Left wrist carpal tunnel release. CHIEF COMPLAINT: Left wrist pain and numbness. HISTORY OF PRESENT ILLNESS: Alfredo is a 68-year-old male, a patient of Dr. Ríos who complains of numbness and tingling in his left hand and pain in his left wrist for a year and a half, it has gradually gotten worse, the pain is on the dorsal aspect of his wrist and radiates proximally, the numbness is in the radial 3 fingers of his left hand. The pain varies depending on what he is doing, he is not currently working, but he plays a lot of pickle ball and golf and these do tend to aggravate symptoms sometimes. He does not have any neck pain. There is no specific injury. He does have a history of coronary artery disease and type 2 diabetes. He also states that he has never been told that he has any bleeding disorder, but he is always "taken a long time to clot." PAST MEDICAL HISTORY: Significant for coronary artery disease, type 2 diabetes , hypertension, obstructive sleep apnea, osteoarthritis, hypercholesteremia, liver disease, kidney stones. PAST SURGICAL HISTORY: Left knee total arthroplasty in 2018. He had cardiac catheterization in 2006 and 2017. He had a pilonidal cyst removal in 1989, tonsillectomy in 1959. MEDICATIONS: 1. Atorvastatin calcium 10 mg 1 p.o. daily. 2. Chlorthalidone 25 mg 1 p.o. daily. 3. Lisinopril 5 mg 1 p.o. daily. 4. Metformin HCL XR 500 mg 4 tablets once daily. 5. Aspirin 81 mg 1 p.o. daily. 6. Glimepiride 4 mg 1 tablet twice a day. 7. Lantus SoloSTAR 100 units per mL 30 units SQ at bedtime. 8. Acarbose 50 mg 1 p.o. t.i.d. 9. Humulin R 100 units per mL sliding scale. 10. Amoxicillin 500 mg 4 pills 1 hour before dental or GI procedure. ALLERGIES: SIMVASTATIN results in leg swelling. FAMILY HISTORY: Positive for coronary artery disease and lung cancer. SOCIAL HISTORY: He is retired and he lives with his girlfriend. He denies any tobacco or recreational drug use. He states his alcohol use is less than once a month . REVIEW OF SYSTEMS: General: Negative for fevers, chills, night sweats, unexplained weight loss or gain. No known anesthesia problems. HEENT: Negative for headache, lightheadedness, syncopal episodes, visual changes. Integumentary: Negative for abrasions, lesions, open wounds. Cardiothoracic: Negative for hypertension, chest pain, palpitations, edema. Respiratory: Negative for shortness of breath with exertion, chronic cough, wheezing. GI is negative for nausea, vomiting, diarrhea, constipation or GERD. : Negative for nocturia, urinary frequency, urgency, history of UTIs, kidney problems. Musculoskeletal: Positive for left wrist pain. Negative for chronic or intermittent back or neck pain. Negative for history of fractures. Neuro: Negative for paresthesias, numbness, history of seizure, stroke, poor balance. Negative for anxiety or depression. Endocrine is positive for diabetes, negative for thyroid issues. Hematologic: Negative for easy bruising, anemia, bleeding disorders, history of DVT or PE. Positive for history of extended bleeding time. ID: Negative for history of MRSA infection, hepatitis C, or HIV. PHYSICAL EXAMINATION GENERAL: Well developed, well nourished 58-year-old male, in no acute distress. VITAL SIGNS: Height 66 inches, weight 260, pulse 52, BP 126/67, respiratory 16 , temp 96.2, pain level 0, BMI 42. HEENT: NC/AT, PERRLA, EOMI. PULMONARY: Lungs are clear to auscultation bilaterally, no WRR. NECK: Supple. No palpable lymph nodes. Throat is clear. CARDIO: RRR. S1, and S2 heard. No murmurs, rubs or gallops, no edema. ABDOMEN: Positive bowel sounds, soft, nontender. NEUROLOGIC: A and O x3. Cranial nerves II through XII intact. Sensation is intact to light touch. MUSCULOSKELETAL: On exam of the left wrist he has some prominence at the radial aspect of the radial carpal joint dorsally and is tender there as well. He has good range of motion of his fingers. He make a fist and fully extend his fingers. He has some mild deformity of his left thumb nail with some dry and cracked skin. He has decreased sensation in the median nerve distribution compared to the ulnar nerve distribution. Wrist range of motion is slightly decreased compared to the right. Skin is intact aside from the thumb. Strength at the thumb, abduction is decreased. 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 IMPRESSION: Left carpal tunnel syndrome and radiocarpal arthritis of the left wrist. PLAN: The patient is scheduled to undergo left carpal tunnel release on with Dr. Barber. Procedure as well as the risks and benefits were explained to the patient, he agreed to proceed. He will return to the office 10 days postop for followup and suture removal. A prescription for tramadol was e- scribed to the patient's pharmacy for postoperative pain management. He already has a cardiology and endocrinology appointment set up between now and the surgery, so he is going to talk to both of the doctors and get clearance for surgery from them. YONY LAZAR [id number]/[facility] #: [id number] ANA
[~2018-11-29 08:50] MED LIST: Buffered Lidocaine 1% SYRIN* 1 ML/SYRINGE INTRADERM ONE; Famotidine IV* 10 MG/ML 2 ML (20 mg) IV ONE; Famotidine IV* 10 MG/ML 2 ML (20 mg) ONE; HYDROcodone/ACETAMIN 5-325 MG* 1 TAB PO PRN; Lactated Ringers 1000 ML Bag* 1,000 ML IV SCH; Naloxone* 0.4 MG/ML 1 ML VIAL IV PRN; Ondansetron INJ* 2 MG/ML VIAL IV PRN; fentaNYL* 50 MCG/ML 2 ML VIAL (100 MCG VIAL) IV PRN; oxyCODONE/Acetamin 5/325 MG* TAB PO PRN
[2018-11-29] MEDS ORDERED: Lidocaine 2% PF * 5 ML VIAL ONE (09:20)
[2018-11-29] MEDS ORDERED: Propofol* 10 MG/ML 20 ML BTL ONE (09:20)
[2018-11-29] MEDS ORDERED: Midazolam* 1 MG/ML 2 ML VIAL (2 MG) ONE (09:20)
[2018-11-29] MEDS ORDERED: fentaNYL* 50 MCG/ML 2 ML VIAL (100 MCG VIAL) ONE (09:20)
[2018-11-29] MEDS ORDERED: methylPREDNISolone ACETATE 80* 80 MG/ML 1 ML VIAL ONE (09:48)
[2018-11-29] MEDS ORDERED: Lidocaine 1% INJ* 10 MG/ML 30 ML SDV ONE (09:49)
[2018-11-29] MEDS ORDERED: Lidocaine 1%* 5 ML VIAL ONE (10:04)
[2018-11-29 11:22] VITALS: BP 121/69
--- NOTE | 2018-11-29 16:23 | OP ---
CC: Dr. Barber OPERATIVE NOTE: DATE OF OPERATION: 11/29/18 DATE OF : 52 SURGEON: Dr. Barber. MANAGER PRODUCT MARKETING: YONY Dial ANESTHESIA: Local MAC. PRE-OP DIAGNOSIS: Left carpal tunnel syndrome and left thumb carpometacarpal arthritis. POST-OP DIAGNOSIS: Left carpal tunnel syndrome and left thumb carpometacarpal arthritis. PROCEDURE: Left carpal tunnel release and left thumb CMC injection. ESTIMATED BLOOD LOSS: Zero. TOURNIQUET TIME: About 10 minutes. INDICATIONS FOR PROCEDURE: Alfredo is a 68-year-old man who has numbness and tingling in the medial n erve distribution of his left hand. He had pain at the base of his left thumb. He presents for left thumb CMC joint injection and left carpal tunnel release. OPERATIVE PROCEDURE: The patient was brought to the operating room, was given a sedation anesthetic and local infiltration of 10 cc of 1% plain lidocaine in the palm of his left hand. Skin of his left hand and forearm was prepped and draped in usual sterile fashion. The hand and forearm were exsangu inated and the tourniquet elevated to 250 mmHg. An injection of 80 mg of Depo-Medrol and 2 cc of 1% lidocaine was given at the thumb CMC joint prior to the tourniquet going up. A longitudinal incision was made in the palm in line with the ring finger. We dissected through the subcutaneous tissue catia n to the transverse carpal ligament. The ligament was divided sharply with a knife and then more prox imally with the scissors. The nerve was dissected free from surrounding tissue and there was an area of moderate compression at the mid portion of the ligament. The wound was irrigated and the skin ed ges reapproximated with 4-0 nylon suture. The wound was dressed with Xeroform, 4x4, Webril, and an A ce wrap. The patient tolerated the procedure well and was brought to the recovery room in good condi tion. [id number]/[facility] #: [id number]
== END 2018-11-29 10:58 | disposition home or self-care (01) ==
LOC: OREAST 08:50
PROVIDERS: ATTEND Orthopaedic Surgery
DX: G56.02 Carpal tunnel syndrome, left upper limb (principal); M18.12 Unilateral primary osteoarthritis of first carpometacarpal joint, left hand; E11.9 Type 2 diabetes mellitus without complications; Z79.4 Long term (current) use of insulin; Z79.84 Long term (current) use of oral hypoglycemic drugs; I25.10 Atherosclerotic heart disease of native coronary artery without angina pectoris; I10 Essential (primary) hypertension; G47.33 Obstructive sleep apnea (adult) (pediatric); M19.90 Unspecified osteoarthritis, unspecified site; E78.00 Pure hypercholesterolemia, unspecified
CPT/HCPCS: J1040; J2250; J2704; J3010

== ENCOUNTER 2022-04-04 09:15 | Inpatient (IN) ==
[2022-04-05] MEDS ORDERED: fentaNYL 100 mcg/2 ml 50 MCG/ML VIAL IV PRN (11:22)
[2022-04-05] MEDS ORDERED: Naloxone 0.4 mg VIAL 0.4 mg/ml 1 ml VIAL IV PRN (11:22)
[2022-04-05] MEDS ORDERED: Ondansetron 4 mg VIAL 2 MG/ML 2 ml VIAL IV PRN (11:22)
[2022-04-06] MEDS ORDERED: Lactated Ringers 1000 ml BAG 1,000 ML IV SCH ×2 (06:00→11:00)
[2022-04-06] MEDS ORDERED: Buffered Lidocaine 1% SYRIN 1 ml INTRADERM ONE ×2 (06:00→07:48)
[2022-04-06] MEDS ORDERED: ROPIVACAINE 5 MG/ML 30 ML BTL (0.5%) ONE (07:48)
[2022-04-06] MEDS ORDERED: ceFAZolin 2 GM PREMIX 2 GM/50 ML BAG ONE (07:48)
[2022-04-06] MEDS ORDERED: Midazolam 2 mg/2 ml VIAL 1 mg/ml 2 ml VIAL (2 mg) ONE (07:48)
[2022-04-06] MEDS ORDERED: Lidocaine 2% PF 5 ML VIAL ONE ×2 (07:49→09:02)
[2022-04-06] MEDS ORDERED: Dexamethasone IV 4 MG/ML VIAL 1 ml VIAL ONE ×2 (07:49→09:02)
[2022-04-06] MEDS ORDERED: Ropivacaine 5 MG/ML 20 ML VIAL 0.5% (100 MG) ONE (08:47)
[2022-04-06] MEDS ORDERED: fentaNYL 250 mcg/5 ml 50 MCG/ML 5 ml VIAL (250 MCG) ONE (09:02)
[2022-04-06] MEDS ORDERED: Ondansetron 4 mg VIAL 2 MG/ML 2 ml VIAL ONE (09:02)
[2022-04-06] MEDS ORDERED: Propofol 10 MG/ML 20 ML BTL ONE (09:02)
[2022-04-06] MEDS ORDERED: Succinylcholine 200 mg VIAL 20 mg/ml 10 ml VIAL (200 mg) ONE (09:37)
[2022-04-06] MEDS ORDERED: Metoclopramide 5 MG/ML VIAL (10 mg) ONE (09:50)
[2022-04-06] MEDS ORDERED: Acetaminophen IV 1 GM/100ML 1,000 MG/100 ML BAG IV ONE (10:18)
[2022-04-06] MEDS ORDERED: HYDROmorphone 0.5 MG/0.5 ML SYRINGE ONE ×3 (10:23→12:48)
[2022-04-06] MEDS ORDERED: Ondansetron 4 mg VIAL 2 MG/ML 2 ml VIAL IV PRN (10:37)
[2022-04-06] MEDS ORDERED: Ondansetron ODT 4 mg TAB 4 MG TAB PO PRN (10:37)
[2022-04-06] MEDS ORDERED: Lactulose 30 ml UDC PO PRN (10:37)
[2022-04-06] MEDS ORDERED: Magnesium Hydroxide LIQ 30 ML UDC PO PRN (10:37)
[2022-04-06] MEDS ORDERED: Dextrose 50% Syringe 50 ml 25 GM/50 ML SYRINGE IV PUSH PRN ×2 (12:39→13:12)
[2022-04-06] MEDS ORDERED: Naloxone 0.4 mg VIAL 0.4 mg/ml 1 ml VIAL IV PRN (12:40)
[2022-04-06] MEDS ORDERED: HYDROmorphone 1 MG/1 ML SYRINGE ONE (12:54)
[2022-04-06] MEDS: HYDROmorphone 1 MG/1 ML SYRINGE IV PRN ×3 (12:55→13:22)
[2022-04-06] MEDS: Morphine 2 MG/ML SYRINGE IV PRN ×2 (18:02→22:59)
[2022-04-06] MEDS: ceFAZolin 1 GM ADVAN 1 GM in NS 0.9% 50 ML 50 ML IVPB SCH (18:03)
[2022-04-06] MEDS ORDERED: Glimepiride 4 mg TAB (NF) PO SCH (21:00)
[2022-04-06] MEDS: Magnesium Hydroxide LIQ 30 ML UDC PO SCH (22:24)
[2022-04-06] MEDS: Glimepiride 2 mg TAB (NF) PO SCH (22:24)
[2022-04-07] MEDS: ceFAZolin 1 GM ADVAN 1 GM in NS 0.9% 50 ML 50 ML IVPB SCH ×2 (01:43→10:00)
[2022-04-07] MEDS: Morphine 2 MG/ML SYRINGE IV PRN (06:33)
[2022-04-07 06:34] LABS: Hematocrit 30 % (42-52); Mean Platelet Volume 8.5 fL (7.4-10.4); Platelet Count 188 10^3/uL (150-450)
[2022-04-07 07:23] LABS: Calcium 8.7 mg/dL (8.6-10.3); eGFR CKD-EPI 72.2 (>60)
[2022-04-07] MEDS ORDERED: Vitamin THERAPEUTIC TAB PO SCH (09:00)
[2022-04-07] MEDS ORDERED: Aspirin EC 81 mg TAB.EC (enteric coated) PO SCH (09:00)
[2022-04-07] MEDS: Glimepiride 2 mg TAB (NF) PO SCH (09:52)
[2022-04-07] MEDS: Magnesium Hydroxide LIQ 30 ML UDC PO SCH (09:52)
[2022-04-07 11:15] VITALS: BP 138/64
== END 2022-04-07 16:05 | disposition home or self-care (01) | DRG 470 ==
LOC: AA 04-06 07:14 → SSU 04-06 15:39
PROVIDERS: ADMIT Orthopaedic Surgery Adult Reconstructive Orthopaedic Surgery; ATTEND Orthopaedic Surgery Adult Reconstructive Orthopaedic Surgery